=== PATIENT | female | born 1995 | race Caucasian/White ===

== ENCOUNTER 2021-06-07 20:21 | Emergency (ER) | payer SELFPAY ==
[~2021-06-07] VITALS: Ht 170.2 cm; Wt 84.0 kg
[2021-06-07 20:31] VITALS: BP 113/74
[2021-06-07 23:24] LABS: CHLORIDE 106 mEq/L (98-107)
[2021-06-07 23:36] LABS: HEMATOCRIT. 35.5 % (36.0-48.0); HEMOGLOBIN. 12.6 g/dL (12.0-16.0); MEAN CORPUSCULAR HEMOGLOBIN 29.6 pg (28.0-32.0); MEAN CORPUSCULAR VOLUME 83.3 fL (81.0-99.0); MEAN PLATELET VOLUME 8.1 fl (7.4-10.4); PLATELET 199 x1000/uL (130-400); RED BLOOD CELL COUNT 4.26 mill/uL (4.2-5.4); RED CELL DISTRIBUTION WIDTH 12.7 % (11.6-14.6)
[2021-06-07 23:51] LABS: B-HCG QUANTITATIVE 18292 mIU/mL (<3)
[2021-06-08] MEDS ORDERED: KETOROLAC 15MG/ML VIAL IM ONE
[2021-06-08 02:32] LABS: PLATELET ESTIMATE NORMAL
== END 2021-06-08 03:02 | disposition home or self-care (01) ==
LOC: ER 20:21
DX: O02.1 Missed abortion (principal)
CPT/HCPCS: 36415; 76801; 76817; 80053; 84702; 85025; 86850; 86900; 86901; 96372; 99284; J1885

== ENCOUNTER 2025-01-21 15:47 | Emergency (ER) | payer MEDICAID, OTHER ==
[~2025-01-21] VITALS: Ht 170.2 cm; Wt 85.0 kg
[~2025-01-21 15:47] MED LIST: HYDR-4001 MT
[2025-01-21 15:52] VITALS: O2SAT 100
[2025-01-21 16:27] LABS: BASOPHILS % 0.8 % (0.0-2.0); EOSINOPHILS % 1.4 % (0.0-5.0); HEMATOCRIT. 41.7 % (36.0-48.0); HEMOGLOBIN. 14.1 g/dL (12.0-16.0); LYMPHOCYTES % 28.5 % (20.0-50.0); MEAN PLATELET VOLUME 7.8 fl (7.4-10.4); MONOCYTES % 5.5 % (2.0-8.0); NEUTROPHILS % 63.8 % (40.0-76.0); PLATELET 316 x1000/uL (130-400); RED BLOOD CELL COUNT 5.10 mill/uL (4.2-5.4); RED CELL DISTRIBUTION WIDTH 14.5 % (11.6-14.6)
[2025-01-21 16:34] LABS: CREATININE 0.8 mg/dL (0.6-1.0)
[2025-01-21 16:35] LABS: TROPONIN I HIGH SENSITIVITY < 4 ng/L (3.0-34); UREA NITROGEN BLOOD 8 mg/dL (9-23)
[2025-01-21 16:36] LABS: ASPARTATE AMINOTRANSFERASE 30 IU/L (<34)
[2025-01-21 16:37] LABS: BILIRUBIN DIRECT 0.3 mg/dL (<=3.0); BILIRUBIN TOTAL 0.9 mg/dL (0.1-1.0); PROTEIN TOTAL 7.9 g/dL (6.0-8.3)
[2025-01-21 18:27] LABS: HCG SCREEN NEGATIVE
[2025-01-21 18:28] LABS: ETHANOL BLOOD < 10 mg/dL (<10)
[2025-01-21] MEDS: KCL 10MEQ/50ML PREMIX 50 ML IV SCH (18:43)
[2025-01-21] MEDS: SODIUM CHLORIDE 0.9% 1,000 ML IV ONE (18:50)
[2025-01-21] MEDS: LORAZEPAM 2MG/ML UD SYRINGE IV NR (19:25)
[2025-01-21] MEDS: POTASSIUM CHLORIDE 20MEQ/PACKET PO ONE (19:25)
[2025-01-21] MEDS: MAGNESIUM 1 G PREMIX 100 ML IV ONE (19:54)
[2025-01-21] MEDS: FOLIC ACID 1 MG, THIAMINE HCL 100 MG, MVI, ADULT NO.1 10 ML in DEXTROSE 5% WATER 1,000 ML IV ONE (20:02)
[2025-01-21 22:02] VITALS: BP 140/97; PULSE 66; RESP 20; TEMP 36.7; O2SAT 100
== END 2025-01-21 22:05 | disposition home or self-care (01) ==
LOC: ER 15:47 → CMPBEDREQ 01-22 07:46
DX: F10.239 Alcohol dependence with withdrawal, unspecified (principal); E87.6 Hypokalemia; F41.9 Anxiety disorder, unspecified; I10 Essential (primary) hypertension; E83.42 Hypomagnesemia; Y90.9 Presence of alcohol in blood, level not specified
CPT/HCPCS: 80076; 80048; 80320; 82962; 84703; 83735; 85025; 84484; 36415; 71045; 93005; 96367; 96365; 96375; 99285; J3490 ×2; J2060; J3475; J3480; J3411; J7070; J7030; Z7610; A4606; G0480